=== PATIENT | female | born 1980 | race Caucasian/White ===

== ENCOUNTER 2018-04-08 21:02 | Emergency (ER) | payer MEDICAID | END 2018-04-09 01:22 | disposition home or self-care (01) | LOC: FTE 21:02 | DX: S16.1XXA Strain of muscle, fascia and tendon at neck level, initial encounter (principal); S39.012A Strain of muscle, fascia and tendon of lower back, initial encounter; V49.40XA Driver injured in collision with unspecified motor vehicles in traffic accident, initial encounter | CPT/HCPCS: 99283; Z7502 ==

== ENCOUNTER 2019-03-19 18:16 | Emergency (ER) | payer MEDICAID | END 2019-03-19 18:40 | disposition home or self-care (01) | LOC: E/R 18:40 | DX: M54.5 Low back pain (principal) | CPT/HCPCS: 99283; Z7502 ==